=== PATIENT | female | born 1970 | race Native Hawaiian/Other Pacific Islander ===

== ENCOUNTER 2021-08-27 06:13 | Emergency (ER) | payer OTHER ==
[2021-08-27] MEDS ORDERED: ANUCORT-HC25 MG PR (06:52)
[2021-08-27] MEDS ORDERED: DOCUSATE SODIU1 EAC1 PO (06:52)
== END 2021-08-27 06:58 | disposition home or self-care (01) ==
LOC: FER 06:13
DX: K60.0 Acute anal fissure (principal)
CPT/HCPCS: 99283